=== PATIENT | female | born 1945 | race Hispanic/Latino ===

== ENCOUNTER 2018-09-01 11:30 | Observation (INO) | payer MEDICARE ==
[~2018-09-01] VITALS: Ht 147.3 cm; Wt 64.8 kg
[~2018-09-01 11:30] MED LIST: ACET-2247 PO; IBUP-2353 PO; LISI-613 PO; METF-444 PO; SIMV20TA6 PO
[2018-09-01 12:33] LABS: BASOPHILS % (AUTO) 0.5 % (0.0-5.0); EOSINOPHILS % (AUTO) 1.5 % (0.0-8.0); HEMATOCRIT 38.1 % (36-48); MEAN CORPUSCULAR HEMOGLOBIN 27.8 pg (27.0-33.0); MEAN CORPUSCULAR HGB CONC 32.6 g/dL (32.0-36.0); MEAN CORPUSCULAR VOLUME 85.1 fL (79-99); MONOCYTES % (AUTO) 8.2 % (3.0-13.0); NEUTROPHILS % (AUTO) 57.8 % (40.0-77.0); NUCLEATED RED BLOOD CELLS 0.1 % (0.0-0.19); PLATELET COUNT (AUTO) 277 K/uL (130-400); RED BLOOD CELL COUNT(AUTO) 4.48 MIL/uL (4.00-5.50); RED CELL DISTRIBUTION WIDTH 13.5 % (11.0-15.5); WHITE BLOOD COUNT (AUTO) 9.5 K/uL (4.8-10.8)
[2018-09-01] MEDS ORDERED: LISI-617 PO (12:42)
[2018-09-01 12:45] VITALS: BP 133/88
[2018-09-01 12:51] LABS: CREATININE 0.8 mg/dL (0.5-1.5); POTASSIUM 3.9 mmol/L (3.5-5.1)
[2018-09-01 12:56] LABS: ALBUMIN 3.7 g/dL (3.5-5.0); BILIRUBIN,DIRECT 0.1 mg/dL (0.0-0.3); BILIRUBIN,TOTAL 0.6 mg/dL (0.2-1.0); TOTAL PROTEIN, SERUM 8.5 g/dL (6.0-8.3)
--- NOTE | 2018-09-01 13:00 | NUR ---
ARRIVAL TO FLOOR PT IS AAOX3. DENIES CP DENIES SOB DENIES NV STATES VERY MINIMAL DISCOMFORT TO LEFT LOWER ABD QUAD, 1-10. NO VISIBLE SIGNS OF DISTRESS NOTED. FAMILY IS AT BEDSIDE. CALL LIGHT WITHIN REACH.
[2018-09-01] MEDS ORDERED: DiphenhydrAMINE HCL 50 MG/ML VIAL IV PRN (13:30)
[2018-09-01] MEDS ORDERED: ONDANSETRON HCL 4 MG/2 ML VIAL IVP PRN (13:30)
[2018-09-01] MEDS ORDERED: CEFTRIAXONE SODIUM 1 GM IVP SCH (13:30)
[2018-09-01] MEDS ORDERED: DiphenhydrAMINE HCL 25 MG/10 ML ELIXIR UDCUP PO PRN (13:30)
[2018-09-01] MEDS ORDERED: ZOLPIDEM TARTRATE 5 MG TAB PO PRN (13:30)
[2018-09-01] MEDS: 1/2 NORMAL SALINE 1,000 ML IV SCH (13:44)
[2018-09-01] MEDS: METRONIDAZOLE 500MG/100ML BAG 100 ML IV SCH ×2 (13:44→20:40)
--- NOTE | 2018-09-01 13:45 | NUR ---
MEDS ADMINISTERED IV FLUIDS, FLAGYL, AND ROCEPHIN GIVEN. NO COMPLAINTS. WAITING FOR CT SCAN PREP.
[2018-09-01 16:00] VITALS: BP 143/83
--- NOTE | 2018-09-01 17:30 | NUR ---
DOWN TO CT SCAN VIA WC WITH RADIOLOGY STAFF
--- NOTE | 2018-09-01 17:58 | NUR ---
RETURNED FROM CT SCAN AAOX4 NO COMPLAINTS.
[2018-09-01 20:00] VITALS: BP 133/69
[2018-09-01] MEDS ORDERED: ACET-2743 PO (20:38)
[2018-09-01] MEDS ORDERED: ACETAMINOPHEN EXTRA STRENGTH 500 MG TABLET PO PRN (20:45)
[2018-09-01] MEDS ORDERED: ATORVASTATIN CALCIUM 10 MG TABLET PO SCH (21:00)
[2018-09-02 00:07] VITALS: BP 128/75
[2018-09-02 04:00] VITALS: BP 124/75
[2018-09-02 06:05] LABS: HEMATOCRIT 37.4 % (36-48); MEAN CORPUSCULAR HEMOGLOBIN 27.5 pg (27.0-33.0); MEAN CORPUSCULAR HGB CONC 32.4 g/dL (32.0-36.0); MEAN CORPUSCULAR VOLUME 85.1 fL (79-99); NUCLEATED RED BLOOD CELLS 0.1 % (0.0-0.19); PLATELET COUNT (AUTO) 289 K/uL (130-400); RED BLOOD CELL COUNT(AUTO) 4.39 MIL/uL (4.00-5.50); RED CELL DISTRIBUTION WIDTH 13.5 % (11.0-15.5); WHITE BLOOD COUNT (AUTO) 9.2 K/uL (4.8-10.8)
[2018-09-02] MEDS: METRONIDAZOLE 500MG/100ML BAG 100 ML IV SCH (06:09)
[2018-09-02 06:16] LABS: CREATININE 0.9 mg/dL (0.5-1.5); POTASSIUM 3.8 mmol/L (3.5-5.1)
[2018-09-02 07:04] LABS: EOSINOPHILS % (MANUAL) 1 % (1-6); LYMPHOCYTES % (MANUAL) 43 % (22-44); MAN.DIFF COMMENT-IMPRESSION MANUAL DIFFERENTIAL; MONOCYTES % (MANUAL) 3 % (2-9); SEGMENTED NEUTROPHILS % 53 % (40-70)
[2018-09-02 07:05] LABS: PLATELET MORPHOLOGY COMMENT ADEQUATE
[2018-09-02 07:57] VITALS: BP 147/83
[2018-09-02] MEDS ORDERED: GUAIFENESIN SUGAR-FREE 100 MG/5 ML UDCUP PO PRN (08:00)
--- NOTE | 2018-09-02 08:00 | NUR ---
DR. DICKEY WITH ORDER FOR DISCHARGE . PT WAS NPO ORDER DIABETIC DIET . . DENIES ANY ABD PAIN OR NAUSEA. . ABD SOFT ,WITH ACTIVE BOWEL SOUND, CALL LIGHT IN REACH.
[2018-09-02] MEDS: METFORMIN HCL 500 MG TABLET PO SCH ×2 (08:11→09:00)
[2018-09-02] MEDS ORDERED: ENOXAPARIN SODIUM 40 MG/0.4 ML SYRINGE SQ SCH (09:00)
[2018-09-02] MEDS ORDERED: LISINOPRIL 5 MG TABLET PO SCH (09:00)
--- NOTE | 2018-09-02 09:00 | NUR ---
TOOK OUT THE METFORMIN 500 MG PO HOME MED . PT HAS A CT SCAN WITH AND WITH OUT CONTRAST , REVIEW THE MEDICATION. NOTED THE DATE OF THE CT SCAN DONE ,ON THE 09-01-18 IT WAS SCAN BUT DISGARDED REVIEW THIS MEDICATIONS NOT TO TAKE IT TOMMORROW ON THE 09-03-18 . HOLD FOR THE 48 HRS .
[2018-09-02] MEDS: 1/2 NORMAL SALINE 1,000 ML IV SCH (09:30)
[2018-09-02 11:58] VITALS: BP 120/77
--- NOTE | 2018-09-02 12:15 | NUR ---
DISCHARGE SUMMARY WAS REVIEW WITH . PT REGARDING THE APPT SETUP WITH DR. DICKEY FOR TOMMORROW, AND APPT SETUP DONE, AND ALSO REVIEW NOT TO TAKE HER MEFORMIN BLOOD SUGAR , 500 MG PO X DAILY , UNTIL THE 09-04-18 SL TO HER RAC WAS DC. WITH NO HEMATOMA NOTED . SITE PRESSURE DRSG IN PLACE ,
== END 2018-09-02 12:15 | disposition home or self-care (01) ==
LOC: EDH 11:30 → EDHIP 11:31 → 3BH 13:10
PROVIDERS: ADMIT Internal Medicine; ATTEND Internal Medicine
DX: K57.92 Diverticulitis of intestine, part unspecified, without perforation or abscess without bleeding (principal); E11.9 Type 2 diabetes mellitus without complications; E78.5 Hyperlipidemia, unspecified; I10 Essential (primary) hypertension; Z79.899 Other long term (current) drug therapy; Z88.0 Allergy status to penicillin
CPT/HCPCS: 36415 ×2; 74178; 80048 ×2; 80076; 82948 ×3; 85025 ×2; 96365; 96366 ×2; 96372; 96375; 99284; G0378 ×25; J0696; J1650; J3490 ×3

== ENCOUNTER → 2021-11-23 | Outpatient (CLI) | payer MEDICARE ==
[~2021-11-23] MED LIST changes: +ACET-2743 PO; -IBUP-2353 PO; +IBUP-2784 PO; -LISI-613 PO; +LISI5TAB21 PO; +SIMV-43 PO; -SIMV20TA6 PO
== END | disposition home or self-care (01) ==
LOC: RAH 15:02
PROVIDERS: ATTEND Internal Medicine
DX: I69.351 Hemiplegia and hemiparesis following cerebral infarction affecting right dominant side (principal); G31.9 Degenerative disease of nervous system, unspecified
CPT/HCPCS: 70450